=== PATIENT | male | born 1965 | race Caucasian/White ===

== ENCOUNTER 2021-02-19 11:51 | Emergency (ER) | payer OTHER ==
[2021-02-19] MEDS ORDERED: Bacitracin Oint 1 GM U/D Packet TOP ONE (12:26)
[2021-02-19] MEDS ORDERED: HYDROmorphone 1 MG/ML Syringe IM ONE (12:26)
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
[2021-02-19] MEDS ORDERED: Lidocaine 1% with EPINEPHrine 1:100,000 50 ML MDV SUBCUT STA (12:58)
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
--- NOTE | 2021-02-19 13:49 | CR ---
Femur Min 2V Rt CLINICAL HISTORY: Foreign body removal FINDINGS: There is no acute fracture within the femur. There is a tiny remanent of wire remaining in the distal third of the thigh near the site of needle puncture
== END 2021-02-19 13:51 | disposition home or self-care (01) ==
LOC: JP.ED 11:51
DX: S71.142A Puncture wound with foreign body, left thigh, initial encounter (principal); W29.4XXA Contact with nail gun, initial encounter
CPT/HCPCS: 73552; 96372; 99283; J1170